=== PATIENT | male | born 1970 ===

== ENCOUNTER 2024-09-06 09:39 | Outpatient (CLI) | payer OTHER, SELFPAY | END 2024-09-06 09:40 | disposition home or self-care (01) | PROVIDERS: PCP Family Medicine; Visit Provider Family Medicine | DX: R53.83 Other fatigue (principal); R63.5 Abnormal weight gain; Z13.6 Encounter for screening for cardiovascular disorders; Z12.5 Encounter for screening for malignant neoplasm of prostate | CPT/HCPCS: 80053; 80061; 84439; 84443; G0103 ==

== ENCOUNTER 2024-09-20 12:09 | Outpatient (CLI) | payer OTHER, SELFPAY | END 2024-09-20 12:10 | disposition home or self-care (01) | LOC: FRMREF 12:10 | PROVIDERS: PCP Family Medicine; Visit Provider Surgery | DX: L05.01 Pilonidal cyst with abscess (principal) | CPT/HCPCS: 87070 ==